=== PATIENT | male | born 1985 | race Two or more races ===

== ENCOUNTER 2018-07-24 10:57 | Emergency (ER) | payer SELFPAY ==
[~2018-07-24] VITALS: Ht 170.2 cm; Wt 104.0 kg
[2018-07-24] MEDS ORDERED: IBUPROFEN 800MG TABLET PO ONE (12:30)
[2018-07-24] MEDS ORDERED: HYDROCODONE/ACETAMINOPHEN 5/325MG TABLET PO ONE (12:30)
[2018-07-24] MEDS ORDERED: CEFTRIAXONE SODIUM 1 G/VIAL IM ONE (12:45)
[2018-07-24] MEDS ORDERED: KETOROLAC 60MG/2ML VIAL IM ONE (12:45)
[2018-07-24 14:00] VITALS: BP 140/89
== END 2018-07-24 14:26 | disposition home or self-care (01) ==
LOC: ER 11:15
DX: L03.115 Cellulitis of right lower limb (principal); R03.0 Elevated blood-pressure reading, without diagnosis of hypertension
CPT/HCPCS: 73562; 96372; 99284; J0696; J1885

== ENCOUNTER 2019-04-10 15:46 | Emergency (ER) | payer SELFPAY ==
[~2019-04-10] VITALS: Ht 172.7 cm; Wt 104.5 kg
[2019-04-10 22:44] LABS: CLARITY URINE CLEAR (CLEAR); COLOR URINE YELLOW (YELLOW); KETONES URINE NEGATIVE (NEGATIVE); LEUKOCYTE ESTERASE URINE NEGATIVE (NEGATIVE); NITRITE URINE NEGATIVE (NEGATIVE); OCCULT BLOOD URINE NEGATIVE (NEGATIVE); PH URINE 5.5 (4.5-8.0); PROTEIN URINE 2+ (NEGATIVE); SPECIFIC GRAVITY URINE 1.024 (1.005-1.030); UROBILINOGEN URINE 0.2 E.U./dL (0.2-1.0)
[2019-04-10 23:34] LABS: BASOPHILS % 0.8 % (0.0-2.0); EOSINOPHILS % 1.8 % (0.0-5.0); HEMOGLOBIN. 15.4 g/dL (14.0-18.0); LYMPHOCYTES % 41.3 % (20.0-50.0); MEAN CORPUSCULAR HEMOGLOBIN 31.1 pg (28.0-32.0); MEAN PLATELET VOLUME 8.8 fl (7.4-10.4); MONOCYTES % 5.5 % (2.0-8.0); NEUTROPHILS % 50.6 % (40.0-76.0); PLATELET 294 x1000/uL (130-400); RED BLOOD CELL COUNT 4.95 mill/uL (4.7-6.1); RED CELL DISTRIBUTION WIDTH 14.1 % (11.6-14.6)
[2019-04-10 23:37] LABS: CHLORIDE 102 mEq/L (98-107)
[2019-04-10 23:41] LABS: PROTHROMBIN TIME 10.4 sec (9.6-11.0)
[2019-04-10] MEDS ORDERED: KETOROLAC 30MG/ML VIAL IV ONE (23:45)
[2019-04-11 04:24] VITALS: BP 150/103
== END 2019-04-11 04:30 | disposition home or self-care (01) ==
LOC: ER 15:46
DX: R10.11 Right upper quadrant pain (principal); I10 Essential (primary) hypertension
CPT/HCPCS: 36415; 74176; 80053; 81003; 83690; 85025; 85610; 99284; Z7610

== ENCOUNTER 2024-02-15 00:31 | Emergency (ER) | payer MEDICAID, OTHER ==
[~2024-02-15] VITALS: Ht 172.7 cm; Wt 95.0 kg
[2024-02-15 00:56] VITALS: O2SAT 100
[2024-02-15 01:36] LABS: ALANINE AMINOTRANSFERASE 41 IU/L (10-49); ALBUMIN 4.5 g/dL (3.2-4.8); ASPARTATE AMINOTRANSFERASE 26 IU/L (<34); BILIRUBIN TOTAL 0.4 mg/dL (0.1-1.0); CALCIUM 8.4 mg/dL (8.7-10.4); CARBON DIOXIDE 29 mEq/L (21-32); CHLORIDE 95 mEq/L (98-107); CREATININE 0.8 mg/dL (0.6-1.3); GLUCOSE 256 mg/dL (70-105); POTASSIUM 3.8 mEq/L (3.5-5.1); PROTEIN TOTAL 6.7 g/dL (6.0-8.3); SODIUM 131 mEq/L (136-145); UREA NITROGEN BLOOD 10 mg/dL (9-23)
[2024-02-15 01:49] LABS: CLARITY URINE CLEAR (CLEAR); COLOR URINE YELLOW (YELLOW); GLUCOSE URINE 2+ (NEGATIVE); KETONES URINE NEGATIVE (NEGATIVE); LEUKOCYTE ESTERASE URINE NEGATIVE (NEGATIVE); NITRITE URINE NEGATIVE (NEGATIVE); OCCULT BLOOD URINE NEGATIVE (NEGATIVE); PROTEIN URINE TRACE (NEGATIVE); SPECIFIC GRAVITY URINE 1.013 (1.005-1.030)
[2024-02-15 02:03] LABS: BASOPHILS % 0.8 % (0.0-2.0); DIFFERENTIAL COMMENT 0; EOSINOPHILS % 2.6 % (0.0-5.0); HEMATOCRIT. 41.4 % (42.0-52.0); HEMOGLOBIN. 14.9 g/dL (14.0-18.0); MEAN CORPUSCULAR HEMOGLOBIN 31.9 pg (28.0-32.0); MEAN CORPUSCULAR HGB CONC 35.9 g/dL (31.0-37.0); MEAN CORPUSCULAR VOLUME 88.8 fL (80.0-94.0); MEAN PLATELET VOLUME 9.5 fl (7.4-10.4); MONOCYTES % 4.4 % (2.0-8.0); NEUTROPHILS % 51.2 % (40.0-76.0); PLATELET 298 x1000/uL (130-400); RED BLOOD CELL COUNT 4.66 mill/uL (4.7-6.1); WHITE BLOOD COUNT 8.1 x1000/uL (4.5-11.0)
[2024-02-15 02:14] LABS: RBC URINE 0-2 /hpf (0-2); WBC URINE 0-2 /hpf (0-2)
[2024-02-15 02:16] LABS: SQUAMOUS EPITHELIAL CELL URINE FEW /lpf (RARE/1+)
[2024-02-15 02:28] LABS: BACTERIA URINE NONE SEEN
[2024-02-15] MEDS ORDERED: FAMO-135 MT (02:41)
[2024-02-15] MEDS ORDERED: IBUP-2029 MT (02:41)
[2024-02-15] MEDS: KETOROLAC 30MG/ML VIAL IM ONE (03:26)
[2024-02-15] MEDS: FAMOTIDINE 20MG TABLET PO ONE (03:26)
[2024-02-15] MEDS: MAGNESIUM/ALUMINUM HYDROXIDE/SIMETHICONE 30ML UDC PO ONE (03:26)
[2024-02-15] MEDS: ONDANSETRON 4MG ODT PO ONE (03:26)
[2024-02-15 03:31] VITALS: BP 181/115; PULSE 83; RESP 18; TEMP 98.1
== END 2024-02-15 03:40 | disposition home or self-care (01) ==
LOC: ER 00:31
DX: K80.50 Calculus of bile duct without cholangitis or cholecystitis without obstruction (principal); I10 Essential (primary) hypertension
CPT/HCPCS: 99285; 76705; 80053; 81003; 83690; 85025; 36415; 96372; Q0162; J1885

== ENCOUNTER 2024-12-13 11:24 | Emergency (ER) | payer MEDICAID, OTHER ==
[~2024-12-13] VITALS: Ht 172.7 cm; Wt 99.0 kg
[~2024-12-13 11:24] MED LIST: FAMO-135 MT; IBUP-2029 MT
[2024-12-13 11:29] VITALS: O2SAT 100
[2024-12-13] MEDS ORDERED: KETOROLAC 15MG/ML VIAL IM ONE (13:30)
[2024-12-13] MEDS ORDERED: LIDO700A15 TP (16:28)
[2024-12-13] MEDS ORDERED: NAPR-1176 MT (16:28)
[2024-12-13] MEDS: KETOROLAC 15MG/ML VIAL IM NR (16:42)
[2024-12-13 16:47] VITALS: BP 148/90; PULSE 107; RESP 20; TEMP 36.83628; O2SAT 100
== END 2024-12-13 16:49 | disposition home or self-care (01) ==
LOC: ER 11:24
DX: S20.212A Contusion of left front wall of thorax, initial encounter (principal); I10 Essential (primary) hypertension; E11.9 Type 2 diabetes mellitus without complications; Z79.899 Other long term (current) drug therapy; W19.XXXA Unspecified fall, initial encounter; Y93.89 Activity, other specified; Y92.002 Bathroom of unspecified non-institutional (private) residence as the place of occurrence of the external cause; Y99.8 Other external cause status
CPT/HCPCS: 99283; 71045; 96372; J1885